=== PATIENT | female | born 1990 | race Caucasian/White ===

== ENCOUNTER 2020-06-21 10:24 | Emergency (ER) | payer OTHER, SELFPAY ==
[2020-06-21 10:39] VITALS: BP 153/79; PULSE 75; RESP 18; TEMP 36.6; O2SAT 100
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
== END 2020-06-21 11:10 | disposition home or self-care (01) ==
PROVIDERS: Emergency Provider Nurse Practitioner Family; PCP Family Medicine
DX: J02.9 Acute pharyngitis, unspecified (principal); M19.90 Unspecified osteoarthritis, unspecified site; K21.9 Gastro-esophageal reflux disease without esophagitis; E28.2 Polycystic ovarian syndrome; F32.9 Major depressive disorder, single episode, unspecified
CPT/HCPCS: 87081; 87880; 99213; G0463

== ENCOUNTER 2021-11-16 00:54 | Day surgery (SDC) | payer OTHER, SELFPAY ==
[2021-11-06 11:33] VITALS: BMI 58.1
[2021-11-16] MEDS: LACTATED RINGERS 1,000 ML 150 ML IV CONT (10:59)
[2021-11-16 11:00] VITALS: BP 150/91; PULSE 92; RESP 20; TEMP 35.9; O2SAT 99; BMI 57.9
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
[2021-11-16 11:39] VITALS: BP 118/75; PULSE 93; RESP 16; O2SAT 98
[2021-11-16 11:49] VITALS: BP 121/70; PULSE 95; RESP 24; O2SAT 99
[2021-11-16 11:59] VITALS: BP 131/87; PULSE 86; RESP 17; O2SAT 99
== END 2021-11-16 12:10 | disposition home or self-care (01) ==
PROVIDERS: PCP Family Medicine; Visit Provider Internal Medicine Gastroenterology
PROC: 0DJD8ZZ Inspection of Lower Intestinal Tract, Via Natural or Artificial Opening Endoscopic (ICD-10-PCS; CPT 45378; principal; 2021-11-16 11:45)
DX: K92.1 Melena (principal); K64.8 Other hemorrhoids; F41.8 Other specified anxiety disorders; M19.90 Unspecified osteoarthritis, unspecified site; K21.9 Gastro-esophageal reflux disease without esophagitis; K58.9 Irritable bowel syndrome, unspecified; E28.2 Polycystic ovarian syndrome; F12.90 Cannabis use, unspecified, uncomplicated; F17.210 Nicotine dependence, cigarettes, uncomplicated; E66.01 Morbid (severe) obesity due to excess calories; Z68.43 Body mass index [BMI] 50.0-59.9, adult
CPT/HCPCS: 45378; J2704; J7120

== ENCOUNTER 2024-04-14 11:38 | Outpatient (CLI) | payer OTHER, SELFPAY ==
--- NOTE | ~2024-04-14 | XR_ITS ---
XR abdomen/kub 1V Ordering provider: Mamta Crowell APRN History: . K59.00 - Constipation, unspecified . Comparison: None. FINDINGS: BOWEL: Nonobstructive bowel gas pattern. ORGANOMEGALY: None. SIGNIFICANT PATHOLOGIC CALCIFICATIONS: None. OTHER: No free air is seen under the diaphragm. IMPRESSION: NO ACUTE ABDOMINAL FINDINGS. Reviewed, dictated and finalized at location A.
== END 2024-04-14 11:39 | disposition home or self-care (01) ==
LOC: ANHIMG 11:40
PROVIDERS: PCP Family Medicine; Visit Provider Nurse Practitioner Adult Health
DX: K59.00 Constipation, unspecified (principal)
CPT/HCPCS: 74018